=== PATIENT | male | born 1965 | race Caucasian/White ===

== ENCOUNTER 2018-05-19 16:23 | Emergency (ER) | payer OTHER ==
[~2018-05-19] VITALS: Ht 180.3 cm; Wt 80.7 kg
== END 2018-05-19 19:44 | disposition home or self-care (01) ==
LOC: ER 16:23
DX: R05 Cough (principal); R04.2 Hemoptysis

== ENCOUNTER 2021-08-02 08:30 | Outpatient (CLI) | payer OTHER | END 2021-08-02 08:39 | disposition home or self-care (01) | LOC: SONOGRAMA 08:30 | PROVIDERS: ATTEND Naturopath | DX: R10.30 Lower abdominal pain, unspecified (principal) ==